=== PATIENT | female | born 1945 | race Caucasian/White ===

== ENCOUNTER 2017-05-05 15:48 | Emergency (ER) | payer MEDICARE ==
[~2017-05-05] VITALS: Ht 165.1 cm; Wt 58.0 kg
[2017-05-05] MEDS ORDERED: SODIUM CHLORIDE FLUSH 10ML SYR IVF ONE (16:30)
[2017-05-05] MEDS ORDERED: SODIUM CHLORIDE 0.9% 1,000ML IVBOLUS ONE (16:30)
[2017-05-05 17:00] LABS: BLOOD UREA NITROGEN 23 mg/dL (7-18)
[2017-05-05 17:04] LABS: IS PT STATUS REG ER OR PRE ER? YES
[2017-05-05 18:56] LABS: PATH.CAST-FLAG NOT PRESENT; SPERM-FLAG NOT PRESENT; SRC-FLAG NOT PRESENT; XTAL-FLAG NOT PRESENT; YLC-FLAG NOT PRESENT
[2017-05-05 19:15] VITALS: BP 131/50
== END 2017-05-05 19:17 | disposition home or self-care (01) ==
LOC: ED 19:11
DX: J20.9 Acute bronchitis, unspecified (principal); B96.89 Other specified bacterial agents as the cause of diseases classified elsewhere
CPT/HCPCS: 36415; 71020; 80048; 81001; 82040; 83605; 83880; 84484; 85025; 87040; 87086; 93005; 99285